=== PATIENT | female | born 1985 | race Caucasian/White ===

== ENCOUNTER 2018-06-14 17:23 | Emergency (ER) | payer MEDICAID ==
[~2018-06-14] VITALS: Ht 157.5 cm; Wt 97.1 kg
[2018-06-14 17:29] VITALS: BP 147/87
--- NOTE | 2018-06-14 17:35 | NUR ---
TAYLOR RN: PT AMBULATED INDEPENDENTLY TO ED ROOM IN NAD
== END 2018-06-14 18:03 | disposition home or self-care (01) ==
LOC: ED 18:00
DX: K04.7 Periapical abscess without sinus (principal); F17.200 Nicotine dependence, unspecified, uncomplicated
CPT/HCPCS: 99283

== ENCOUNTER 2020-06-18 17:55 | Emergency (ER) | payer MEDICAID ==
[~2020-06-18] VITALS: Ht 154.9 cm; Wt 115.0 kg
--- NOTE | 2020-06-18 18:50 | NUR ---
bedside report from audra cabral
--- NOTE | 2020-06-18 19:05 | NUR ---
PT SITTING UPRIGHT ON CHARLES ROMERO VSS. PT DENIES ANY NEEDS AT THIS TIME. CALL LIGHT AND PERSONAL BELONGINGS WITHIN REACH. FRIEND AT BEDSIDE.
--- NOTE | 2020-06-18 19:19 | NUR ---
ERP AT BEDSIDE FOR PELVIC EXAM.
[2020-06-18] MEDS ORDERED: HYDROcodone/APAP 5/325 TABLET PO ONE (19:30)
[2020-06-18] MEDS ORDERED: ACYCLOVIR 800 MG TABLET PO ONE (19:30)
[2020-06-18 19:46] LABS: CLUE CELLS NONE SEEN (NONE SEEN)
[2020-06-18 19:48] LABS: WET PREP WBCS NONE SEEN (FEW)
[2020-06-18] MEDS ORDERED: HYDROcodone/APAP 5/325 TABLET ONE (19:48)
--- NOTE | 2020-06-18 20:05 | NUR ---
PT SITTING UPRIGHT ON CHARLES ROMERO. PT DENIES ANY NEEDS AT THIS TIME. AWAITING MEDICATION FROM PHARMACY. FRIEND REMAINS AT BEDSIDE.
[2020-06-18 20:21] VITALS: BP 149/95
--- NOTE | 2020-06-18 20:37 | NUR ---
Patient given discharge instructions and they have confirmed that they understand the instructions. Patient ambulatory with steady gait but requests wheelchair to d/c desk.
== END 2020-06-18 20:39 | disposition home or self-care (01) ==
LOC: ED 19:00
DX: A60.1 Herpesviral infection of perianal skin and rectum (principal); R10.2 Pelvic and perineal pain; A60.04 Herpesviral vulvovaginitis; R30.0 Dysuria; Z88.9 Allergy status to unspecified drugs, medicaments and biological substances
CPT/HCPCS: 87210; 87491; 87591; 87808; 99284